=== PATIENT | female | born 1985 | race Caucasian/White ===

== ENCOUNTER 2016-11-21 16:28 | Emergency (ER) | payer MEDICAID ==
[~2016-11-21] VITALS: Ht 152.4 cm; Wt 81.5 kg
[2016-11-21 16:37] VITALS: Ht 152.4 cm; Wt 81.5 kg
[2016-11-21 18:23] LABS: BASOPHILS % 0.4 % (0.0-2.0); EOSINOPHILS # 0.3 10^3/ul (0.0-0.5); EOSINOPHILS % 2.5 % (0.0-7.0); HEMATOCRIT 39.2 % (37.0-47.0); HEMOGLOBIN 12.4 g/dl (12.0-16.0); LYMPHOCYTES # 2.3 10^3/ul (0.8-2.9); MEAN CORPUSCULAR HEMOGLOBIN 27.9 pg (29.0-33.0); MEAN CORPUSCULAR HGB CONC 31.6 g/dl (32.0-37.0); MEAN CORPUSCULAR VOLUME 88.1 fl (82.0-101.0); MEAN PLATELET VOLUME 9.5 fl (7.4-10.4); MONOCYTE # 0.8 10^3/ul (0.3-0.9); MONOCYTES % 8.1 % (0.0-11.0); NEUTROPHIL # 6.9 10^3/ul (1.6-7.5); PLATELET COUNT 341 10^3/UL (140-415); RED BLOOD COUNT 4.45 10^6/ul (4.20-5.40); RED CELL DISTRIBUTION WIDTH 13.6 % (11.5-14.5); WHITE BLOOD COUNT 10.4 10^3/ul (4.8-10.8)
[2016-11-21 18:41] LABS: ADD UMIC YES; UR ASCORBIC ACID NEGATIVE (NEGATIVE); UR BACTERIA FEW /HPF (NONE SEEN); UR BILIRUBIN (Dip) NEGATIVE (NEGATIVE); UR BLOOD (Dip) NEGATIVE (NEGATIVE); UR CLARITY CLEAR (CLEAR); UR COLOR YELLOW (YELLOW); UR GLUCOSE (Dip) NEGATIVE (NEGATIVE); UR KETONES (Dip) NEGATIVE (NEGATIVE); UR LEUKOCYTE ESTERASE (Dip) TRACE Leu/ul (NEGATIVE); UR NITRITE (Dip) POSITIVE (NEGATIVE); UR RBC 0 /HPF (0-5); UR SPECIFIC GRAVITY (Dip) 1.008 (1.003-1.030); UR TOTAL PROTEIN (Dip) NEGATIVE (NEGATIVE); UR UROBILINOGEN (Dip) NEGATIVE (NEGATIVE)
[2016-11-21 18:43] LABS: ALBUMIN 4.2 g/dl (3.3-4.9); ALBUMIN/GLOBULIN RATIO 1.27; BILIRUBIN,INDIRECT 0.2 mg/dl (0-1.1); BILIRUBIN,TOTAL 0.2 mg/dl (0.2-1.3); CALCIUM 9.2 mg/dl (8.4-10.2); CREATININE 0.58 mg/dl (0.44-1.00); TOTAL PROTEIN 7.5 g/dl (6.1-8.1)
--- NOTE | 2016-11-21 19:13 | RADRPT ---
PROCEDURE: FIRST TRIMESTER OBSTETRICAL ULTRASOUND: CLINICAL INDICATION: 30 years of age, female. Vaginal bleeding . COMPARISON: None available. TECHNIQUE: Real-time sonographic images of the pelvis were obtained transabdominally and transvagina lly utilizing walters scale, color, and Doppler imaging. FINDINGS: LMP October 09, 2016 EGA by dates: 6 weeks 1 day ROJELIO by dates: July 16, 2017 Uterus: Normal. Retroflexed. Gestational sac: There is a sac-like structure eccentrically situated within the endometrial cavity that likely represents an early intrauterine . There is a yolk sac. Negative for an embryo. Mean sac diameter measures 0.5 cm, compatible with an average ultrasound age of 5 weeks 0 days. Embryo: Not visualized Yolk sac: Present Cervix: Closed. Right ovary: Size: 3.1 x 0.8 x 1.7 cm. (Vol 2.2 mL) Appearance: Normal morphology. No masses. Arterial flow present Left ovary: Size: 3.4 x 2.9 x 2.1 cm. (Vol 10.4 mL) Appearance: Normal morphology. No masses. 1.3 cm corpus luteum. Arterial flow present Bladder: Visualized bladder is normal. Other: No free fluid. IMPRESSION: Intrauterine with an intrauterine gestational sac and yolk sac. Estimated gestational age by mean sac diameter is 5 weeks 0 days and is concordant with the expected gestational age by dates within 8 days. At this early gestational age, an embryo is not yet identified and viability cannot be established. Recommend correlation with Beta HCG and follow-up ultrasound in 10-14 days or earlie r if clinically warranted. RPTAT: HCTS Physician Jesusita Date Time Electronically viewed and signed by Physician Jesusita on 11/21/2016 19:13 /
[2016-11-21] MEDS ORDERED: CEPH-443 PO (19:16)
[2016-11-21 19:42] VITALS: BP 110/64; PULSE 87; RESP 18; TEMP 98.3
--- NOTE | 2016-11-21 20:35 | ERD ---
ER Documentation Chief Complaint Date/Time DATE: 11/21/16 TIME: 20:32 Chief Complaint 6 WEEK WITH PELVIC PAIN HPI This patient is a 30-year-old female presenting to the emergency department with complaints of pelvic pain. The patient's last menstrual cycle was . Patient is . Her symptoms are intermittent but not improving. She denies bleeding, discharge, fevers, chills, or other symptoms. ROS All systems reviewed and are negative except as per history of present illness. Medications Home Meds Active Scripts Cephalexin* (Keflex*) 500 Mg Capsule, 500 MG PO TID for 7 Days, #21 CAP Prov:CARMELO ANDERS PA-C 11/21/16 Allergies Allergies: Coded Allergies: No Known Allergy (Unverified , 11/21/16) PMhx/Soc Medical and Surgical Hx: pt denies Medical Hx, pt denies Surgical Hx Hx Alcohol Use: No Hx Substance Use: No Hx Tobacco Use: No Smoking Status: Never smoker Physical Exam Vitals Vital Signs Date Time Temp Pulse Resp B/P Pulse Ox O2 Delivery O2 Flow Rate FiO2 11/21/16 19:42 98.3 87 18 110/64 99 11/21/16 16:37 99.4 85 18 102/59 99 Physical Exam Const: Nontoxic, well-appearing female in no acute distress. Head: Atraumatic Eyes: Normal Conjunctiva ENT: Normal External Ears, Nose and Mouth. Neck: Full range of motion..~ No meningismus. Resp: Clear to auscultation bilaterally Cardio: Regular rate and rhythm, no murmurs Abd: Soft, non tender, non distended. Normal bowel sounds. Mild suprapubic tenderness to palpation bilaterally. Skin: No petechiae or rashes Back: No midline or flank tenderness Ext: No cyanosis, or edema Neur: Awake and alert Psych: Normal Mood and Affect Result Diagram: 11/21/16 1805 11/21/16 180 Results 24 hrs Laboratory Tests Test 11/21/16 18:05 White Blood Count 10.410^3/ul Red Blood Count 4.4510^6/ul Hemoglobin 12.4g/dl Hematocrit 39.2% Mean Corpuscular Volume 88.1fl Mean Corpuscular Hemoglobin 27.9pg Mean Corpuscular Hemoglobin Concent 31.6g/dl Red Cell Distribution Width 13.6% Platelet Count 88278^3/UL Mean Platelet Volume 9.5fl Neutrophils % 66.0% Lymphocytes % 22.0% Monocytes % 8.1% Eosinophils % 2.5% Basophils % 0.4% Nucleated Red Blood Cells % 0.0/100WBC Neutrophils # 6.910^3/ul Lymphocytes # 2.310^3/ul Monocytes # 0.810^3/ul Eosinophils # 0.310^3/ul Basophils # 0.010^3/ul Nucleated Red Blood Cells # 0.010^3/ul Urine Color YELLOW Urine Clarity CLEAR Urine pH 8.0 Urine Specific [place] 1.008 Urine Ketones NEGATIVEmg/dL Urine Nitrite POSITIVEmg/dL Urine Bilirubin NEGATIVEmg/dL Urine Urobilinogen NEGATIVEmg/dL Urine Leukocyte Esterase TRACELeu/ul Urine Microscopic RBC 0/HPF Urine Microscopic WBC 3/HPF Urine Bacteria FEW/HPF Urine Hemoglobin NEGATIVEmg/dL Urine Glucose NEGATIVEmg/dL Urine Total Protein NEGATIVEmg/dl Sodium Level 139mmol/L Potassium Level 4.0mmol/L Chloride Level 105mmol/L Carbon Dioxide Level 25mmol/L Anion Gap 13 Blood Urea Nitrogen 10mg/dl Creatinine 0.58mg/dl Glucose Level 86mg/dl Calcium Level 9.2mg/dl Total Bilirubin 0.2mg/dl Direct Bilirubin 0.00mg/dl Indirect Bilirubin 0.2mg/dl Aspartate Amino Transf (AST/SGOT) 28IU/L Alanine Aminotransferase (ALT/SGPT) 39IU/L Alkaline Phosphatase 62IU/L Total Protein 7.5g/dl Albumin 4.2g/dl Globulin 3.30g/dl Albumin/Globulin Ratio 1.27 Beta HCG, Quantitative 1405.8mIU/ml Procedures/[facility] EMERGENCY DEPARTMENT COURSE / MEDICAL DECISION MAKING: This is a 30-year-old female who comes to the emergency room secondary to complaints of pelvic pain. On re-evaluation, the patient was feeling improved. Lab results reviewed. CBC: No significant acute abnormalities. Chemistry: Within normal limits. UA: Concerning for uncomplicated urinary tract infection. Radiology: PROCEDURE: FIRST TRIMESTER OBSTETRICAL ULTRASOUND: CLINICAL INDICATION: 30 years of age, female. Vaginal bleeding . COMPARISON: None available. TECHNIQUE: Real-time sonographic images of the pelvis were obtained transabdominally and transvaginally utilizing walters scale, color, and Doppler imaging. FINDINGS: LMP October 09, 2016 EGA by dates: 6 weeks 1 day ROJELIO by dates: July 16, 2017 Uterus: Normal. Retroflexed. Gestational sac: There is a sac-like structure eccentrically situated within the endometrial cavity that likely represents an early intrauterine . There is a yolk sac. Negative for an embryo. Mean sac diameter measures 0.5 cm, compatible with an average ultrasound age of 5 weeks 0 days. Embryo: Not visualized Yolk sac: Present Cervix: Closed. Right ovary: Size: 3.1 x 0.8 x 1.7 cm. (Vol 2.2 mL) Appearance: Normal morphology. No masses. Arterial flow present Left ovary: Size: 3.4 x 2.9 x 2.1 cm. (Vol 10.4 mL) Appearance: Normal morphology. No masses. 1.3 cm corpus luteum. Arterial flow present Bladder: Visualized bladder is normal. Other: No free fluid. IMPRESSION: Intrauterine with an intrauterine gestational sac and yolk sac. Estimated gestational age by mean sac diameter is 5 weeks 0 days and is concordant with the expected gestational age by dates within 8 days. At this early gestational age, an embryo is not yet identified and viability cannot be established. Recommend correlation with Beta HCG and follow-up ultrasound in 10- 14 days or earlier if clinically warranted. RPTAT: HCTS Physician Jesusita Date Time Electronically viewed and signed by Physician Jesusita on 11/21/2016 19: 13 CS/ CC: CARMELO ANDERS PA-C The primary diagnosis is Urinary tract infection. Secondary diagnosis is Pelvic pain affecting I have low suspicion for Ectopic , tubo-ovarian abscess, sepsis, or other emergent conditions at this time. Discharge: I have discussed the lab results and diagnostic findings with the patient and answered any questions or concerns. The patient was discharged with a prescription for Keflex. The patient was advised to followup with their PMD in 1-2 days and to return to the Emergency Department if there are any new or worsening symptoms. The patient understood and agreed with the diagnosis, treatment and plan. The patient is stable for discharge at this time. Departure Diagnosis: Primary Impression: Urinary tract infection Urinary tract infection type: acute cystitis Hematuria presence: without hematuria Qualified Code: N30.00 - Acute cystitis without hematuria Additional Impression: Pelvic pain affecting Trimester: first trimester Qualified Code: O26.891 - Pelvic pain affecting in first trimester, antepartum Condition: Fair Patient Instructions: Understanding Urinary Tract Infections (UTIs), Pelvic Pain In : Unclear (2-3 Trimester) Referrals: [facility] YOU HAVE RECEIVED A MEDICAL SCREENING EXAM AND THE RESULTS INDICATE THAT YOU DO NOT HAVE A CONDITION THAT REQUIRES URGENT TREATMENT IN THE EMERGENCY DEPARTMENT. FURTHER EVALUATION AND TREATMENT OF YOUR CONDITION CAN WAIT UNTIL YOU ARE SEEN IN YOUR DOCTORS OFFICE WITHIN THE NEXT 1-2 DAYS. IT IS YOUR RESPONSIBILITY TO MAKE AN APPOINTMENT FOR FOLOW-UP CARE. IF YOU HAVE A PRIMARY DOCTOR --you should call your primary doctor and schedule an appointment IF YOU DO NOT HAVE A PRIMARY DOCTOR YOU CAN CALL OUR PHYSICIAN REFERRAL HOTLINE AT IF YOU CAN NOT AFFORD TO SEE A PHYSICIAN YOU CAN CHOSE FROM THE FOLLOWING [facility] [address] [facility]. [facility] [address] [facility] [address] [facility] [facility] [address] [facility] [facility] [address] [facility] [facility]. [address] [place] [employer] [address] [facility] [address] [place] [address] OFFICE FAX DAVID COTTER [address] [place], [place] [id number] [address] [place] [address] [place], [place] [id number] [address] [facility] [address] [facility], [address] [place] [address] [address] [address] [facility], [place] [address] [facility] [address] [place] [address] [phone], [facility] [address] - [place] [address] [address] [facility] [address] [place] [address] [facility]. [address], [place] [address] [address] [address] [place], [place] [id number] Additional Instructions: Please return in 2-3 days for repeat examination if you are continuing to have symptoms. Follow up with your PCP within the next 1-3 days for a repeat evaluation. If you require a referral to a specialist, your Primary Care Provider may be able to provide this for you. In most patient cases, a referral is not required. If you have further questions regarding this matter, please ask your Primary Care Provider. Return the the emergency department immediately if symptoms worsen or change. If you have any questions regarding medications, ask your pharmacist or us before you leave. If any adverse reactions, occur while taking your medications, discontinue the treatment and return to the emergency department immediately. If any new or worsening symptoms, uncontrolled fevers, or other unexplained symptoms occur, return to the emergency department immediately. Take your medications as directed, and complete the entire course of treatment. CARMELO ANDERS PA-C Nov 21, 2016 20:35
== END 2016-11-21 19:44 | disposition home or self-care (01) ==
LOC: FTE 16:28
DX: O23.11 Infections of bladder in pregnancy, first trimester (principal); R10.2 Pelvic and perineal pain; Z3A.01 Less than 8 weeks gestation of pregnancy
CPT/HCPCS: 76801; 76817; 80053; 81001; 84702; 85025; 86900; 86901; Z7502

== ENCOUNTER 2016-11-30 14:10 | Emergency (ER) | payer MEDICAID ==
[~2016-11-30] VITALS: Ht 157.5 cm; Wt 82.5 kg
[~2016-11-30 14:10] MED LIST: CEPH-443 PO
[2016-11-30 14:14] VITALS: Ht 157.5 cm; Wt 82.5 kg
--- NOTE | 2016-11-30 16:54 | RADRPT ---
PROCEDURE: OB Ultrasound. CLINICAL INDICATION: Positive test. Vaginal bleeding. TECHNIQUE: Ultrasound of the pelvis was performed with transabdominal and transvaginal sonography in the axial and sagittal planes. COMPARISON: No prior study is available for comparison. FINDINGS: There is a single intrauterine gestational sac. pole and yolk sac are present. There is heart motion. heart rate is 116 beats per minute. Cavour-rump length is 0.58 cm. Mean sac diameter is 0.90 cm. Menstrual age by ultrasound dates is 6 weeks 0 days. This indicates an expected date of delivery of 07/26/2017. The right ovary appears normal measuring 2.7 x 1.1 x 1.9 cm. The left ovary appears normal measuring 3.9 x 2.2 x 2.2 cm. Color Doppler and pulsed Doppler sonography demonstrate normal flow to the ovaries. There is no other pelvic mass or free fluid. IMPRESSION: 1. Single live intrauterine gestation of 6 weeks 0 days menstrual age by ultrasound dates. 2. Expected date of delivery is 07/26/2017. RPTAT: QQ .Daniele Mcgovern MD, Date Time Electronically viewed and signed by .Daniele Mcgovern MD, on 11/30/2016 16:54 .R/
--- NOTE | 2016-12-06 14:53 | ERD ---
ER Documentation Chief Complaint Date/Time DATE of dictation: 12/06/16 TIME: 14:48 Date of service 11/30/2016 Chief Complaint vag bleed x 1 week, 7 weeks HPI This 22-year-old female complains of intermittent vaginal spotting for last week she is actually improved. She denies cramping, dysuria, fevers, vomiting. She was seen here approximately 11 days ago for vaginal bleeding and had a small gestational sac has been followed at the clinic with serial hCGs. She says by history of there are increasing. She is referred here for ultrasound as she is unable to get one today through the clinic. ROS All systems reviewed and are negative except as per history of present illness. Medications Home Meds Active Scripts Cephalexin* (Keflex*) 500 Mg Capsule, 500 MG PO TID for 7 Days, #21 CAP Prov:CARMELO ANDERS PA-C 11/21/16 Allergies Allergies: Coded Allergies: No Known Allergy (Unverified , 11/21/16) PMhx/Soc Hx Alcohol Use: No Hx Substance Use: No Hx Tobacco Use: No Physical Exam Physical Exam Const: [] Head: Atraumatic Eyes: Normal Conjunctiva ENT: Normal External Ears, Nose and Mouth. Neck: Full range of motion..~ No meningismus. Resp: Clear to auscultation bilaterally Cardio: Regular rate and rhythm, no murmurs Abd: Soft, non tender, non distended. Normal bowel sounds Skin: No petechiae or rashes Back: No midline or flank tenderness Ext: No cyanosis, or edema Neur: Awake and alert Psych: Normal Mood and Affect Procedures/MDM Unable to make contact with the clinic for verbal laboratory results from ongoing visits this week due to prolonged hold times. Patient is Rh+ from previous visit. Pelvic ultrasound shows a 6 week intrauterine with positive heart tones with no evidence of ectopic , ovarian torsion, acute abnormalities. Patient has vaginal spotting and then uncertain etiology first trimester with a normal appearing intrauterine . Patient discharged home with OB follow-up and return precautions. The patient was stable with no new complaints during the ER course. Clinically, there is no current evidence to suggest meningitis, sepsis, acute abdomen, pneumonia, acute coronary syndrome, pulmonary embolism, or any other emergent condition appearing to require further evaluation or hospitalization. The patient should certainly return for any new or worsening symptoms per the aftercare instructions. They should otherwise follow-up with her primary care doctor for reevaluation this week. Departure Diagnosis: Primary Impression: Vaginal bleeding in patient at less than 20 weeks ges... Condition: Stable Patient Instructions: Bleeding During Early Referrals: TIMOTHY EDMOND MD (PCP) Additional Instructions: Ultrasound shows 6 week with normal heart tones. Follow-up with OB this week. Return otherwise for new or worsening symptoms-fevers, tissue. MARA CESPEDES MD Dec 06, 2016 14:53
== END 2016-11-30 17:22 | disposition home or self-care (01) ==
LOC: FTE 14:10
DX: O20.9 Hemorrhage in early pregnancy, unspecified (principal); Z3A.01 Less than 8 weeks gestation of pregnancy
CPT/HCPCS: 76801; 76817; Z7502